=== PATIENT | male | born 1965 | race Caucasian/White ===

== ENCOUNTER 2018-06-07 16:25 | Inpatient (IN) | payer OTHER ==
[~2018-06-07] VITALS: Ht 167.6 cm; Wt 83.9 kg
[2018-06-07 17:07] LABS: ABSOLUTE BASOPHIL COUNT 0 /CUMM (0.0-0.2); ABSOLUTE EOSINOPHIL COUNT 0.1 /CUMM (0.0-0.7); ABSOLUTE GRANULOCYTE CT 6.7 /CUMM (1.4-6.5); ABSOLUTE LYMPH COUNT 1.2 /CUMM (1.2-3.4); ABSOLUTE MONOCYTE COUNT 0.7 /CUMM (0.10-0.60); BASOPHIL % 0.3 % (0.0-2.0); EOSINOPHIL % 0.6 % (0-5); GRANULOCYTE % 76.7 % (42.2-75.2); HEMATOCRIT 37.5 % (42-52); MEAN CORPUSCULAR HGB 25.4 PG (27.0-31.0); MEAN CORPUSCULAR HGB CONC 32.4 G/DL (33.0-37.0); MEAN CORPUSCULAR VOLUME 78.6 FL (80.0-94.0); MEAN PLATELET VOLUME 8.4 FL (7.4-10.4); PLATELET COUNT 275 /CUMM (130-400); RBC DISTRIBUTION WIDTH 18.5 % (11.5-14.5); RED BLOOD CELL CT 4.77 /CUMM (4.70-6.10); WHITE BLOOD CELL COUNT 8.8 /CUMM (4.8-10.8)
[2018-06-07 17:48] LABS: PT 11.3 SEC (9.4-12.5); PTT 26 SEC (25-37)
[2018-06-07 18:18] VITALS: BP 116/85
--- NOTE | 2018-06-07 18:23 | ED GI/GU/ABDOMINAL COMPLAINT ---
History of Present Illness General Chief Complaint: General Adult Stated Complaint: SIB BY DR CHISHOLM? Source: patient Exam Limitations: no limitations Vital Signs & Intake/Output Vital Signs & Intake/Output Vital Signs Date Time Temp Pulse Resp B/P B/P Pulse O2 O2 Flow FiO2 Mean Ox Delivery Rate 06/07 2038 98.5 87 20 150/90 06/07 1904 98.4 90 18 152/90 06/07 1904 98.4 90 18 152/90 99 Room Air 06/07 1818 98.5 108 18 116/85 06/07 1653 98.5 108 16 116/85 96 Room Air Allergies Coded Allergies: NO KNOWN ALLERGIES (04/01/11) Triage Note: PT STATES HE IS HAVING ABD PAIN STATES HE IS DRINKING TO MUCH. PT HAD BW DONE AT OFFICE AND WAS TOLD THAT HE HAS LOW NA, HIGH K LIPASE IS 793. PT STATES HE PT HAS NO BOWELS SOUNDS. LAST BM WAS YESTERDAY. PT IS ON METHADONE 50MG AND LISINIPRIL Triage Nurses Notes Reviewed? yes Onset: Abrupt Duration: day(s): Timing: recent history Quality/Severity: moderate, sharpness Radiation: epigastric HPI: 52-year-old male with history of alcohol abuse comes in with abdominal pain and nausea. He's been drinking heavily again for about 6 months. He was instructed by his PCP for abnormal labs. Denies any vomiting or blood in his stool. Denies any chest pain or shortness of breath. (Gerry Esparza) Past History Travel History Traveled to [place] past 21 day No Medical History Any Pertinent Medical History? see below for history Cardiovascular: hypertension Psychiatric: alcohol dependence Endocrine: PANCREATITIS Surgical History Surgical History: non-contributory Psychosocial History What is your primary language Estonian Tobacco Use: Never used ETOH Use: alcoholic Illicit Drug Use: METHADONE Family History Hx Contributory? No (Gerry Esparza) Review of Systems Review of Systems Constitutional: Reports: no symptoms. EENTM: Reports: no symptoms. Respiratory: Reports: no symptoms. Cardiovascular: Reports: no symptoms. GI: Reports: see HPI. Genitourinary: Reports: no symptoms. Musculoskeletal: Reports: no symptoms. Skin: Reports: no symptoms. Neurological/Psychological: Reports: no symptoms. Hematologic/Endocrine: Reports: no symptoms. Immunologic/Allergic: Reports: no symptoms. All Other Systems: Reviewed and Negative (Gerry Esparza) Physical Exam Physical Exam General Appearance: well developed/nourished, alert, awake, mild distress Head: atraumatic Eyes: Bilateral: normal appearance. Ears, Nose, Throat, Mouth: hearing grossly normal, moist mucous membrane Neck: normal inspection Respiratory: no respiratory distress Gastrointestinal: soft, tenderness Back: normal inspection Extremities: normal range of motion Core Measures ACS in differential dx? No Sepsis Present: No Sepsis Focused Exam Completed? No (Gerry Esparza) Progress Differential Diagnosis: AMI, biliary colic, gastritis, pancreatitis, PUD/GERD, perforated viscous, SBO Plan of Care: Orders Procedure Date/time Status Nothing by Mouth 06/08 B Active Patient Data 06/07 2016 Active Saline Lock 06/07 2006 Active Misc Message 06/07 2006 Active ED Holding Orders 06/07 2006 Active Admit to inpatient 06/07 2006 Active Vital Signs 06/07 2006 Active Code Status 06/07 2006 Active Intake & Output 06/07 1813 Active URINE LYTES, SPOT 06/07 1730 Complete CIWA 06/07 1656 Active URINE DRUG SCREEN FOR ER ONLY 06/07 1653 Complete TROPONIN LEVEL 06/07 1653 Complete PARTIAL THROMBOPLASTIN TIME 06/07 1653 Complete PROTHROMBIN TIME 06/07 1653 Complete LIPASE 06/07 1653 Complete ETHANOL 06/07 1653 Complete DIRECT BILIRUBIN 06/07 1653 Complete COMPREHENSIVE METABOLIC PANEL 06/07 1653 Complete CBC WITHOUT DIFFERENTIAL 06/07 1653 Complete AMYLASE 06/07 1653 Complete EKG 06/07 1653 Active Current Medications Sig/Randy Start time Last Medication Dose Stop Time Status Admin Lactated Ringer's 1,000 ML ONCE ONE 06/07 1830 AC 06/07 (Lactated Ringers) 06/07 2229 1826 Laboratory Tests 06/07/18 1730: Urine Opiates Screen < 100, Methadone Screen > 735 H, Barbiturate Screen < 60, Ur Phencyclidine Scrn 6.20, Amphetamines Screen < 100, U Benzodiazepines Scrn < 85, Urine Cocaine Screen < 50, Urine Cannabis Screen < 5.00, Ur Random Creatinine 112.0, Ur Random Sodium 57, Ur Random Potassium 13.5, Fraction Sodium Excret 0.4 06/07/18 1702: Anion Gap 14, Estimated GFR > 60, BUN/Creatinine Ratio 14.4, Glucose 182 H, Calcium 8.7, Total Bilirubin 0.6, Direct Bilirubin 0.4, AST 122 H, ALT 95 H, Alkaline Phosphatase 141 H, Troponin I < 0.01, Total Protein 6.9, Albumin 3.7, Globulin 3.2, Albumin/Globulin Ratio 1.2, Amylase 123 H, Lipase 915 H, PT 11.3 , INR 1.04, APTT 26, CBC w Diff NO MAN DIFF REQ, RBC 4.77, MCV 78.6 L, MCH 25.4 L, MCHC 32.4 L, RDW 18.5 H, MPV 8.4, Gran % 76.7 H, Lymphocytes % 14.0 L, Monocytes % 8.4, Eosinophils % 0.6, Basophils % 0.3, Absolute Granulocytes 6.7 H, Absolute Lymphocytes 1.2, Absolute Monocytes 0.7 H, Absolute Eosinophils 0.1 , Absolute Basophils 0, Serum Alcohol 138.0 06/07/18 1654: Ur Random Creatinine Cancelled, Ur Random Sodium Cancelled, Ur Random Potassium Cancelled, Fraction Sodium Excret Cancelled Initial ED EKG: normal sinus rhythm, rate (102), nonspecific ST T wave chg (Gerry Esparza) Departure Departure Disposition: HOME OR SELF CARE Condition: Stable Clinical Impression Primary Impression: Acute pancreatitis Referrals: Hakeem De La Rosa MD (PCP/Family) Departure Forms: Customer Survey General Discharge Information Admission Note Spoke With: Izabela Beltran MD Documentation of Exam: Documentation of any treatments & extenuating circumstances including Concerns Regarding Discharge (functional status, medication knowledge or non-compliance, living conditions, etc.) that warrant an admission rather than observation: IV fluids IV pain control. GI consultation. Medically unsafe for discharge. (Gerry Esparza) PA/VENEER CUTTER Co-Sign Statement Statement: ED Attending supervision documentation- [X] I saw and evaluated the patient. I have also reviewed all the pertinent lab results and diagnostic results. I agree with the findings and the plan of care as documented in the PA's/VENEER CUTTER's documentation. [] I have reviewed the ED Record and agree with the PA's/VENEER CUTTER's documentation. [] Additions or exceptions (if any) to the PAs/VENEER CUTTER's note and plan are summarized below: [ I saw the patient and I personally agree with the PAs evaluation and plan, sent for admission for acute pancreatitis.] (Thom BISWAS,Ernst Young) ED Attending Observation Initial Observation Note: I have seen and personally examined SHELLY VELA JR on 06/07/18 at 1853. I agree with the current emergency department documentation. The disposition (admission or discharge) is uncertain at this time, he needs a period of observation for the following reason(s): The ED Nurse caring for this patient has been personally informed as to what the patient is being observed for. (Yohannes CANDELARIA,Gerry)
[2018-06-07 19:04] VITALS: BP 152/90
[2018-06-07 20:38] VITALS: BP 150/90
--- NOTE | 2018-06-07 20:40 | History & Physical ---
Jacklyn Stanton 06/07/182038: General Information and HPI MD Statement: I have seen and personally examined MIRIANSHELLY JR and documented this H& P. The patient is a 52 year old M who presented with a patient stated chief complaint of [ETOH/Abd]. Source of Information: patient, family, old records Exam Limitations: no limitations History of Present Illness: 52-year-old gentleman with past medical history significant for alcohol use disorder 20 years ago with history of ICU admissions and alcohol withdrawal seizures and delirium tremens no history of intubation, polysubstance abuse on methadone 50 mg, hypertension brought in by family for alcohol withdrawal. Patient apparently started drinking last January after his father's . States he has been having 8 nebs of vodka and 2-4 isiah hard lemonade. He has been drinking more and more and has been more since the last week. His last drink was 2 PM on day of admission. He also complains of three-week duration of a bandlike 8 out of 10 constant pain which is nonradiating associated with one episode of relationship advisor vomiting which is clear and nonbloody. Denies fever, chills, loss of consciousness, falls, or seizure-like activity, decreased p.o. intake, history of gallstones in the past, bowel or bladder symptoms Allergies/Medications Allergies: Coded Allergies: NO KNOWN ALLERGIES (04/01/11) Home Med list Lisinopril/Hydrochlorothiazide (Lisinopril-Hctz 20-12.5 MG Tab) 20 MG-12.5 MG TABLET 1 TAB PO DAILY hypertension (Reported) Compliance With Home Meds: GOOD Past History Travel History Traveled to [place] past 21 day No Medical History Cardiovascular: hypertension Psychiatric: alcohol dependence Endocrine: PANCREATITIS Surgical History Surgical History: non-contributory Past Family/Social History Family History Relations & Conditions if any Relation not specified for: FH: diabetes mellitus Psychosocial History ETOH Use: alcoholic Illicit Drug Use: METHADONE Functional Ability ADLs Independent: dressing, eating, toileting, bathing. Ambulation: independent Employment History Employment Employed (has senior qa automation engineer business) Review of Systems Review of Systems Constitutional: Reports: see HPI. Exam & Diagnostic Data Last 24 Hrs of Vital Signs/I&O Vital Signs Date Time Temp Pulse Resp B/P B/P Pulse O2 O2 Flow FiO2 Mean Ox Delivery Rate 06/08 0101 174/102 06/07 2341 98.8 87 18 174/102 97 Room Air 06/07 2230 Room Air 06/07 2038 98.5 87 20 150/90 06/078 98.5 87 20 150/90 97 Room Air 06/07 1904 98.4 90 18 152/90 06/07 1904 98.4 90 18 152/90 99 Room Air 06/07 1818 98.5 108 18 116/85 06/07 1653 98.5 108 16 11685 96 Room Air Intake & Output 06/08 0800 06/08 0000 06/07 1600 Intake Total 1000 Output Total Balance 1000 Intake, IV 1000 Intake, Oral 0 Patient 185 lb Weight Weight Reported by Patient Measurement Method Physical Exam General Appearance Alert, Oriented X3, tremulous Skin No Significant Lesion HEENT Atraumatic, PERRLA, EOMI, Mucous Membr. moist/pink Lymphatic Cervical nl Cardiovascular Regular Rate, Normal S1, Normal S2 Abdomen Normal Bowel Sounds, Soft, No Tenderness Extremities No Edema Assessment/Plan Assessment: 52-year-old gentleman with past medical history significant for alcohol use disorder 20 years ago with history of ICU admissions and alcohol withdrawal seizures and delirium tremens no history of intubation, polysubstance abuse on methadone 50 mg, hypertension brought in by family for alcohol withdrawal. Problem list Alcohol withdrawal Alcoholic pancreatitis Plan: Admit to general medicine floor, vitals per protocol CIWA protocol, will start on Librium 50 every 6 Continue MVI, thiamine, folic acid We will keep n.p.o. for now, will continue Ringer lactate at 200 cc Advance diet as tolerated and based on abdominal pain. We will continue his home medications Patient is seen at the methadone clinic in [facility] at bedtime, his counselor Yulisa and the number is [phone] extension 435 DVT prophylaxis subcu local Lovenox Full code As Ranked By This Provider Problem List: 1. Acute pancreatitis 2. Alcohol withdrawal Core Measures/Misc (07/26) Acute Coronary Syndrome ACS Diagnosis: No Congestive Heart Failure Congestive Heart Failure Diagnosis No Cerebrovascular Accident CVA/TIA Diagnosis: No VTE (View Protocol) VTE Risk Factors Age>40 No Mechanical VTE Prophylaxis d/t N/A MechProphylax Ordered No VTE Pharm Prophylaxis d/t NA PharmProphylax ordered Sepsis (View protocol) Sepsis Present: No If YES complete Sepsis Event Note If YES complete Sepsis Event Note Ruby RAI,Izabela 06/08/18 2130: Core Measures/Misc (07/26) Sepsis (View protocol) If YES complete Sepsis Event Note If YES complete Sepsis Event Note Attending MD Review Statement Attending Statement Attending MD Statement: examined this patient, discuss w/resident/PA/BUTTER GRADER, agreed w/resident/PA/BUTTER GRADER
[2018-06-07] MEDS ORDERED: LISINOPRIL-HCT1 EACH PO (23:04)
[2018-06-07 23:41] VITALS: BP 174/102
[2018-06-08 06:58] VITALS: BP 124/84
[2018-06-08 08:09] VITALS: BP 150/90
--- NOTE | 2018-06-08 08:30 | PN- Housestaff ---
Otto Wheat 06/08/18 0829: Subjective Follow-up For: Alcohol Detox EtOH Withdrawal Subjective: He has no major complaints other than periumbilical abdominal pain, anxiety and stress that he has had before. Review of Systems Constitutional: Reports: see HPI. Denies: chills, diaphoresis, fever. Respiratory: Reports: no symptoms. Gastrointestinal: Reports: nausea (abdominal pain). Genitourinary: Reports: no symptoms. Neurological/Psychological: Reports: anxiety. Objective Last 24 Hrs of Vital Signs/I&O Vital Signs Date Time Temp Pulse Resp B/P B/P Pulse O2 O2 Flow FiO2 Mean Ox Delivery Rate 06/09 1200 98.1 88 18 134/90 98 Room Air 06/09 0817 80 18 130/90 97 Room Air 06/09 0803 90 152/96 06/09 0405 99.1 92 20 154/104 98 Room Air 06/09 0006 98.9 83 20 140/86 95 Room Air 06/08 2000 88 130/70 06/08 2000 98.7 88 16 130/70 06/08 1958 98.7 88 16 130/70 98 Room Air 06/08 1759 82 150/90 06/08 1600 98.4 80 16 160/104 06/08 1600 98.4 80 16 160/104 98 Room Air 06/08 1506 98.3 79 20 130/88 97 Room Air Intake & Output 06/09 1600 06/09 0800 08 0000 Intake Total 240 1360 Output Total 1400 1350 Balance -1160 10 Intake, IV 1060 Intake, Oral 240 300 Output, Urine 1400 1350 Physical Exam General Appearance: Alert, Oriented X3, Cooperative, No Acute Distress Skin: No Rashes Skin Temp/Moisture Exam: Warm/Dry Sepsis Skin Exam (color): Normal for Ethnicity HEENT: Atraumatic, PERRLA Neck: Supple, No JVD Cardiovascular: Regular Rate, Normal S1, Normal S2 Lungs: Clear to Auscultation, Normal Air Movement Abdomen: Normal Bowel Sounds (mild abominal tenderness) Neurological: Normal Speech, Strength at 5/5 X4 Ext, Normal Tone Extremities: No Clubbing (mild tremor) Orders CIWA Score (last 24 hrs): 4 Assessment/Plan Assessment: The patient is a 52-year-old male who is here for alcohol withdrawal and pancreatitis. His abdominal pain has decreased but still he has some abdominal pain, last night he had mild nausea this morning he has no nausea or vomiting. He feels lightheaded and dizzy when he gets out of the bed. His sodium level is 131, and is normal now. His transaminase AST 93 and ALT 81. For his acute pancreatitis he is n.p.o., and advanced to clear liquids, continuing IV hydration and monitoring. Regarding alcohol dependence/withdrawal, CIWA is followed, changed from Librium to Ativan, multivitamin, thiamine, folate per protocol, and social service consult is placed. The patient is hypokalemic with a sodium of 131 which is probably secondary to volume depletion, IV fluids was changed to normal saline and we will follow with sodium level next morning. [place]-Diuril is held. For his hypertension he is using lisinopril as he was at home, and will follow his blood pressure. He was using methadone at home will continue here as home. Problem List: 1. Alcohol withdrawal 2. Acute pancreatitis Pain Ratin Pain Location: periumbilical without radiation Pain Goal: Pain 4 or less Pain Plan: NPO, Hydaration, Teramadol, Tomorrow's Labs & Rationales: BEP - to follow Na LFT - elevated transaminases Shukri Saleem MD 06/08/18 1508: Attending MD Review Statement Attending Statement Attending MD Statement: examined this patient, discuss w/resident/PA/AIR SAW OPERATOR, agreed w/resident/PA/AIR SAW OPERATOR, discussed with family, reviewed EMR data (avail), discussed with nursing, discussed with case mgmt, amended to note Attending Assessment/Plan: S: The patient continues with some epigastric discomfort. Improved since yesterday. CIWA 0-4. O: VS: Vital Signs Date Time Temp Pulse Resp B/P B/P Pulse O2 O2 Flow FiO2 Mean Ox Delivery Rate 06/08 1506 98.3 79 20 130/88 97 Room Air 06/08 0855 91 150/90 06/08 0809 91 150/90 Intake & Output 06/08 1600 Intake Total 1235 Output Total 350 Balance 885 Intake, IV 875 Intake, Oral 360 Output, Urine 350 Current Medications Sig/Randy Start time Last Medication Dose Route Stop Time Status Admin Acetaminophen 650 MG Q6P PRN 06/08 0245 AC PO Acetaminophen 1,000 MG ONCE ONE 06/07 2315 DC 06/07 N/A 1 UNIT IV 06/07 2329 2315 Chlordiazepoxide HCl 50 MG Q8 06/07 2130 DC 06/08 PO 0518 Enoxaparin Sodium 40 MG DAILY 06/08 0900 AC 06/08 SC 0854 Folic Acid 1 MG DAILY 06/08 0900 AC 06/08 PO 0855 Hydrochlorothiazide 12.5 MG BID 06/08 0115 AC 06/08 PO 0855 Ketorolac 0 .STK-MED ONE 06/07 1717 DC Tromethamine .ROUTE Ketorolac 30 MG ONCE ONE 06/07 1700 DC 06/07 Tromethamine IV 06/07 1701 1724 Lactated Ringer's 1,000 ML DAILY 06/08 0900 CAN IV 06/09 1859 Lactated Ringer's 1,000 ML ONCE ONE 06/07 1830 DC 06/07 IV 06/07 2229 1826 Lisinopril 20 MG BID 06/08 0900 AC 06/08 PO 0855 Lisinopril 20 MG DAILY 06/07 2315 DC 06/08 PO 0101 Lorazepam 1 MG Q8 06/08 1400 AC 06/08 PO 1357 Lorazepam 0 .STK-MED ONE 06/07 2110 DC .ROUTE Lorazepam 0 Q1P PRN 06/07 2100 AC 06/07 IV 2113 Methadone HCl 50 MG DAILY 06/08 09 AC 06/08 PO 0854 Morphine Sulfate 0 .STK-MED ONE 06/07 2034 DC .ROUTE Morphine Sulfate 6 MG ONCE ONE 06/07 2030 DC IV 06/07 2031 Multivitamins 1 TAB DAILY 06/08 0900 AC 06/08 PO 0855 Omeprazole 40 MG DAILY AC 06/08 1041 AC 06/08 PO 1204 Potassium Chloride 40 MEQ Q1H 06/08 0900 DC 06/08 PO 06/08 1001 1005 Sodium Chloride 1,000 ML Q6H 06/08 0915 AC 06/08 IV 06/08 2057 0911 Sodium Chloride 1,000 ML BOLUS ONE 06/07 1700 DC 06/07 IV 06/07 1759 1724 Thiamine HCl 100 MG DAILY 06/08 0900 AC 06/08 PO 0855 Chest: clear Cor: RRR nl S1, S2 w/o murm Abd: BS+, soft, mild epigastric tenderness w/o guarding/rebound Ext: w/o edema Labs: Laboratory Tests 06/08/18 1341: Chloride Cancelled 06/08/18 1341: Estimated GFR > 60, BUN/Creatinine Ratio 13.8 06/08/18 0650: Anion Gap 12, Estimated GFR > 60, BUN/Creatinine Ratio 18.8, Total Bilirubin 1.0 , Direct Bilirubin 0.5 H, AST 93 H, ALT 81 H, Alkaline Phosphatase 90, Total Protein 6.1 L, Albumin 3.0 L 06/07/18 1730: Urine Opiates Screen < 100, Methadone Screen > 735 H, Barbiturate Screen < 60, Ur Phencyclidine Scrn 6.20, Amphetamines Screen < 100, U Benzodiazepines Scrn < 85, Urine Cocaine Screen < 50, Urine Cannabis Screen < 5.00, Ur Random Creatinine 112.0, Ur Random Sodium 57, Ur Random Potassium 13.5, Fraction Sodium Excret 0.4 06/07/18 1702: Anion Gap 14, Estimated GFR > 60, BUN/Creatinine Ratio 14.4, Glucose 182 H, Calcium 8.7, Total Bilirubin 0.6, Direct Bilirubin 0.4, AST 122 H, ALT 95 H, Alkaline Phosphatase 141 H, Troponin I < 0.01, Total Protein 6.9, Albumin 3.7, Globulin 3.2, Albumin/Globulin Ratio 1.2, Amylase 123 H, Lipase 915 H, PT 11.3 , INR 1.04, APTT 26, CBC w Diff NO MAN DIFF REQ, RBC 4.77, MCV 78.6 L, MCH 25.4 L, MCHC 32.4 L, RDW 18.5 H, MPV 8.4, Gran % 76.7 H, Lymphocytes % 14.0 L, Monocytes % 8.4, Eosinophils % 0.6, Basophils % 0.3, Absolute Granulocytes 6.7 H, Absolute Lymphocytes 1.2, Absolute Monocytes 0.7 H, Absolute Eosinophils 0.1 , Absolute Basophils 0, Serum Alcohol 138.0 06/07/18 1654: Ur Random Creatinine Cancelled, Ur Random Sodium Cancelled, Ur Random Potassium Cancelled, Fraction Sodium Excret Cancelled Impression/Plan: #Acute Pancreatitis- symptoms improved, however still some abdominal discomfort. Plan: OK to advance diet to clear liquids. Continue aggressive IV hydration and monitoring (NS). #EtOH Dependence/Withdrawal- CIWA being followed. Converted to Ativan from Librium. Plan: Continue Ativan and CIWA, MVI, thiamine, folate, etc. per protocol. Social service consult. #Hyponatremia/Hypokalemia- ? secondary to volume depletion? Plan: Agree with change IV to NS. Follow up labs. Hold Hydrodiuril. #Essential HTN- on Lisinopril at home. ?takes bid as per patient. Plan: Continue Lisinopril and monitor BP. #H/O Opioid Dependence- on chronic Methadone. Plan: Will continue Methadone and verify dose with clinic.
[2018-06-08 15:06] VITALS: BP 130/88
[2018-06-08 16:00] VITALS: BP 160/104
[2018-06-08 19:58] VITALS: BP 130/70
[2018-06-08 20:00] VITALS: BP 130/70
[2018-06-09] VITALS (8 sets, daily range): BP systolic 130–168; BP diastolic 84–104
--- NOTE | 2018-06-09 06:47 | PN- Housestaff ---
See Addendum Subjective Follow-up For: Alcohol Detox EtOH Withdrawal Review of Systems Constitutional: Denies: chills, diaphoresis, fever (reports mild tremor). Objective Last 24 Hrs of Vital Signs/I&O Vital Signs Date Time Temp Pulse Resp B/P B/P Pulse O2 O2 Flow FiO2 Mean Ox Delivery Rate 06/09 0817 80 18 130/90 97 Room Air 06/09 0803 90 152/96 06/09 0405 99.1 92 20 154/104 98 Room Air 06/09 0006 98.9 83 20 140/86 95 Room Air 06/08 2000 88 130/70 06/08 2000 98.7 88 16 130/70 06/08 1958 98.7 88 16 130/70 98 Room Air 06/08 1759 82 150/90 06/08 1600 98.4 80 16 160/104 06/08 1600 98.4 80 16 160/104 98 Room Air 06/08 1506 98.3 79 20 130/88 97 Room Air Intake & Output 06/09 1600 06/09 0800 06/09 0000 Intake Total 240 1360 Output Total 1400 1350 Balance -1160 10 Intake, IV 1060 Intake, Oral 240 300 Output, Urine 1400 1350 Physical Exam General Appearance: Alert, Oriented X3, Cooperative, No Acute Distress Abdomen: mild periumbilical and epigastric tenderness Extremities: Normal Pulses Orders CIWA Score (last 24 hrs): was under 5 Assessment/Plan Assessment: The patient is a 52-year-old male who is here for alcohol withdrawal and pancreatitis. His abdominal pain has decreased but still he has some abdominal pain, last night he had mild nausea this morning he has no nausea or vomiting. He feels lightheaded and dizzy when he gets out of the bed. His sodium level was 131 yesterday which is increased to 138 and is normal now. His transaminase levels are down, AST 66 and ALT 65. He was n.p.o. on admission, diet was changed to clear liquid the next morning, and today we will try to advance her diet to see if he can tolerate it. One of the social workers talk to him about management of his withdrawal once he is discharged from the hospital. Problem List: 1. Alcohol withdrawal 2. Acute pancreatitis Pain Ratin Pain Location: periumbilical pain and mild tenderness Pain Goal: Pain 4 or less Pain Plan: Diet, PRN med, Tomorrow's Labs & Rationales: BEP
--- NOTE | 2018-06-10 06:31 | PN- Housestaff ---
See Addendum Subjective Follow-up For: Alcohol withdrawal Alcohol detoxification Subjective: I saw him this morning at 7:30, he was complaining about the maldigestion that he had last night around 2 AM which improved after he took omeprazole. His diabetes liquids with toast, and he has tolerated it. He has noticed shaking in his lower extremities. No perspiration, abdominal pain has improved, anxiety is less than yesterday, he also complains about nightmares. Review of Systems Constitutional: Reports: see HPI. Cardiovascular: Reports: no symptoms, see HPI. Respiratory: Reports: no symptoms, see HPI. Objective Last 24 Hrs of Vital Signs/I&O Vital Signs Date Time Temp Pulse Resp B/P B/P Pulse O2 O2 Flow FiO2 Mean Ox Delivery Rate 06/10 0710 98.7 71 20 152/90 97 Room Air 06/09 2252 98.9 71 20 146/94 98 Room Air 06/09 2116 140/94 08/ 1600 84 142/100 08/ 1600 98.8 84 16 142/100 98 Room Air 06/09 1406 99.1 79 22 130/84 97 Room Air 06/09 1200 98.1 88 18 134/90 98 Room Air 06/09 0817 80 18 130/90 97 Room Air 06/09 0803 90 152/96 Intake & Output 06/10 0800 08/ 0000 0801 1600 Intake Total 1880 1400 2400 Output Total 450 900 Balance 9852 688 2957 Intake, IV 1400 1400 1400 Intake, Oral 480 1000 Number 0 Bowel Movements Output, Urine 450 900 Patient 185 lb Weight Physical Exam General Appearance: Alert, Oriented X3, Cooperative, No Acute Distress Skin: No Rashes Skin Temp/Moisture Exam: Warm/Dry Sepsis Skin Exam (color): Normal for Ethnicity HEENT: Atraumatic, PERRLA Neck: Supple, No JVD Cardiovascular: Regular Rate, Normal S1, Normal S2 Lungs: Clear to Auscultation, Normal Air Movement Abdomen: minimal periumbilical tenderness Neurological: Normal Speech Assessment/Plan Assessment: The patient is a 52-year-old male who is here for alcohol withdrawal and pancreatitis. His condition has improved overall and hopefully he can be discharged tomorrow. We will plan for his discharge, Will make an appointment with [facility] so that he can go there for Methadone. He will try to ambulate today. Acute Pancreatitis: His symptoms (Abdominal pain and nausea) improving, he has minimal abdominal pain left (2/10). Plan: Diet will be advanced to regular today, he was OK with fluid diet with toast. IV hydration will be discontinued today. Alcohol Dependence/Withdrawal: We will follow CIWA protocol. Ativan 1mg po Q12 and will taper it. Plan: we will continue Ativan and CIWA protocol. We will follow his condition. Hyponatremia/Hypokalemia: Potassium and Sodium are back to normal and stable. Plan: We will follow up labs to check BEP. Continue to hold Hydrodiuril. Essential HTN: He is currently on Amilodipine and Lisinopril for HTN, still elevated Plan: We will monitor blood pressure to see if it is needed to increase the dose. Hx of Opioid Dependence: He is on chronic Methadone through [facility]. Plan: Will continue Methadone. We will make an appointment for him with [facility] so he can get medication through [facility], once he is discharged from here. Problem List: 1. Alcohol withdrawal 2. Acute pancreatitis Pain Ratin Pain Location: periumbilical Pain Goal: decrease pain Pain Plan: He is tolerating fluids, will advance diet. He has less pain, and will decrease as his pancreatitis resolve over time. Tomorrow's Labs & Rationales: BEP to follow [facility]
[2018-06-10 07:10] VITALS: BP 152/90
[2018-06-10 08:00] VITALS: BP 142/78
[2018-06-10 15:17] VITALS: BP 148/82
--- NOTE | 2018-06-10 18:56 | Discharge Summary ---
See Addendum Visit Information Visit Dates Admission Date: 06/07/18 Discharge Date: 06/11/2018 Hospital Course Course Attending Physician: Shukri Saleem MD Primary Care Physician: Hakeem De La Rosa MD Hospital Course: Mr. Emanuel is a 52-year-old gentleman with past medical history of alcohol use disorder (20 years ago which ended to ICU admission due to the seizures and delirium tremens) who is here for alcohol detoxification and withdrawal. During his hospital course he received p.o. Ativan, methadone 50 mg the same as home dose, and lisinopril with amlodipine to control blood pressure. He was n.p.o. at first then his diet was advanced and he tolerated it and his abdominal pain improved. The patient is going to his methadone clinic today to receive his medication. Acute Pancreatitis: On admission he had a lipase of 915 and lipase 123, during hospital hospital stay his abdominal pain improved. Transaminases were also increased upon admission, which improved. Alcohol Dependence/Withdrawal: CIWA protocol was followed. Essential HTN: Patient presented with high blood pressure, he was on lisinopril/ hydrochlorothiazide, which was stopped due to the hyponatremia, lisiopril and amilodipine were started for him and should be continued outpatient. Hx of Opioid Dependence: He is on chronic Methadone 50 mg daily through [facility]. Allergies: Coded Allergies: NO KNOWN ALLERGIES (04/01/11) Disposition Summary Disposition Principal Diagnosis: Alcohol withdrawal/dependence Alcohol induced pancreatitis Additional Diagnosis: Hypertension Methadone use Discharge Disposition: home or self care Discharge Instructions General Discharge Information Code Status: Full Code Patient's Diet: He tolerated a regular diet Patient's Activity: As tolerated Follow-Up Instructions/Appts: Follow-up with methadone clinic, psychiatry, PCP Check potassium Level in one week Medications at Discharge Discharge Medications: Stop taking the following medications: Lisinopril/Hydrochlorothiazide (Lisinopril-Hctz 20-12.5 MG Tab) 20 MG-12.5 MG TABLET ORAL DAILY Qty = 60 Continue taking these medications: Methadone Hydrochloride (Methadone HCl) 10 MG TABLET 50 Milligram ORAL DAILY Comments: Last Taken: 06/11/18 Time: 1030AM Start taking the following new medications: Lisinopril (Lisinopril) 20 MG TABLET 1 Tablet ORAL TWICE DAILY Qty = 60 No Refills Instructions: . Comments: Last Taken: 06/11/18 Time: 1030AM Omeprazole (Omeprazole) 40 MG CAPSULE.DR 1 Capsule ORAL DAILY Qty = 30 No Refills Comments: Last Taken: 06/11/18 Time: 0600AM Folic Acid (Folic Acid) 1 MG TABLET 1 Milligram ORAL DAILY Qty = 30 No Refills Comments: Last Taken: 06/11/18 Time: 1030AM Thiamine HCl (Vitamin B-1) 100 MG TABLET 100 Milligram ORAL DAILY Qty = 30 No Refills Comments: Last Taken: 06/11/18 Time: 1030AM Multivitamin (One Daily Multivitamin) 1 EACH TABLET 1 Tablet ORAL DAILY Qty = 30 No Refills Comments: Last Taken: 06/11/18 Time: 1030AM Amlodipine Besylate (Amlodipine Besylate) 10 MG TABLET 1 Tablet ORAL DAILY Qty = 30 No Refills Comments: Last Taken: 06/11/18 Time: 1030AM Copies To: Rj RAI,Hakeem Diaz Attending Review Statement Documenting Attending: Shukri Saleem MD Other Findings: The patient was seen and discussed with house staff. Agree with above summary of care and plan for follow-up. His BP meds were adjusted (HCTZ eliminated and Amlodipine initiated). He will need follow-up for this with his PCP. pharmacy services representative is arranging individual alcohol counseling. He will go to his Methadone clinic today to obtain his doses and will be followed there.
[2018-06-10 20:00] VITALS: BP 152/100
--- NOTE | 2018-06-10 21:38 | Patient Discharge Instructions ---
Discharge Instructions General Discharge Information You were seen/treated for: Alcohol abuse Pancreatitis High Blood pressure Special Instructions: Follow up with your pcp within 1 week of discharge Note the medications that have been changed/added: lisinopril and amlodipine Acute Coronary Syndrome Inclusion Criteria At DC or during hospital stay patient has or had the following: ACS DIAGNOSIS No Discharge Core Measures Meds if any: Prescribed or Continued at Discharge Meds if any: NOT Prescribed or Continued at Discharge Congestive Heart Failure Inclusion Criteria At DC or during hospital stay patient has or had the following: CHF DIAGNOSIS No Discharge Core Measures Meds if any: Prescribed or Continued at Discharge Meds if any: NOT Prescribed or Continued at Discharge Cerebrovascular accident Inclusion Criteria At DC or during hospital stay patient has or had the following: CVA/TIA Diagnosis No Discharge Core Measures Meds if any: Prescribed or Continued at Discharge Meds if any: NOT Prescribed or Continued at Discharge Venous thromboembolism Inclusion Criteria VTE Diagnosis No VTE Type NONE VTE Confirmed by (Test) NONE Discharge Core Measures - Per Current guidelines, there needs to be overlap - treatment for the first 5 days of Warfarin therapy. - If discharged on Warfarin prior to 5 days of - overlap therapy, the patient will need to be - assessed for post discharge needs including - *Post discharge parental anticoagulation - *Warfarin and/or parental anticoagulation education - *Follow up date to check INR post discharge At least 5 days overlap therapy as Inpatient No Meds if any: Prescribed or Continued at Discharge Note: Overlap Therapy is Warfarin and Anticoagulant Meds if any: NOT Prescribed or Continued at Discharge
[2018-06-11 00:35] VITALS: BP 130/100
--- NOTE | 2018-06-11 06:39 | PN- Housestaff ---
See Addendum Subjective Follow-up For: Alcohol withdrawal Alcohol detoxification Abdominal pain Subjective: Patient this morning, he was feeling better overall. He reports lower level of anxiety, less tremor, abdominal pain has improved, he reports no perspiration. He reports that he had a normal bowel movement. He has tried to walk yesterday and he is able to walk now although he had some issues with the stability of the first when he tried to walk. Review of Systems Constitutional: Reports: see HPI. Objective Last 24 Hrs of Vital Signs/I&O Vital Signs Date Time Temp Pulse Resp B/P B/P Pulse O2 O2 Flow FiO2 Mean Ox Delivery Rate 06/11 0035 98.8 69 20 130/100 96 06/10 2057 68 152/100 06/10 2000 99.0 68 18 152/100 97 Room Air 06/10 1517 98.6 77 18 148/82 96 Room Air 06/10 0849 66 148/78 Intake & Output 06/11 1600 06/11 0800 06/11 0000 Intake Total 250 210 Output Total Balance 250 210 Intake, IV 10 10 Intake, Oral 240 200 Number Bowel Movements Output, Urine Physical Exam General Appearance: Alert, Oriented X3, Cooperative, No Acute Distress Skin: No Rashes Skin Temp/Moisture Exam: Warm/Dry Sepsis Skin Exam (color): Normal for Ethnicity HEENT: Atraumatic Abdomen: Normal Bowel Sounds, Soft, Minimal periumbilical tenderness improved comparing to yesterday Assessment/Plan Assessment: Assessment: The patient is a 52-year-old male who is here for alcohol withdrawal and pancreatitis. His condition has improved overall and hopefully he can be discharged today. Acute Pancreatitis: His symptoms (Abdominal pain and nausea) improving, he has minimal abdominal pain left (11/18). Plan: he was OK with regular diet. Alcohol Dependence/Withdrawal: We will follow CIWA protocol. Plan: We will follow his condition. Ativan taperd. Hyponatremia/Hypokalemia: Potassium and Sodium are normal. Plan: We will follow up labs to check BEP. He should check potassium as outpatient. Continue to hold Hydrodiuril. Essential HTN: He is currently on Amilodipine and Lisinopril for HTN, still elevated. Plan: We will monitor blood pressure to see if it is needed to increase the dose. Hx of Opioid Dependence: He is on chronic Methadone through his clinic. Plan: Will continue Methadone. We will make an appointment for him with his clinic so he can get medication through his clinic, once he is discharged from here. Problem List: 1. Acute pancreatitis 2. Alcohol withdrawal Pain Ratin Pain Location: Abdomen Pain Goal: DECREASE Pain Plan: Diet and time Tomorrow's Labs & Rationales: na
[2018-06-11] MEDS ORDERED: LISINOPRIL20 M1 PO ×2 (10:56→12:16)
[2018-06-11] MEDS ORDERED: METHADONE HCL10 M1 PO (11:35)
[2018-06-11] MEDS ORDERED: ONE DAILY MULT1 EAC2 PO (11:42)
[2018-06-11] MEDS ORDERED: FOLIC ACID1 M1 PO (11:42)
[2018-06-11] MEDS ORDERED: VITAMIN B-1100 MG PO (11:42)
[2018-06-11] MEDS ORDERED: OMEPRAZOLE40 M1 PO (11:42)
[2018-06-11] MEDS ORDERED: AMLODIPINE BESY10 M1 PO (11:52)
[2018-06-11 12:15] VITALS: BP 148/88
== END 2018-06-11 12:22 | DRG 896 ==
LOC: ERH 16:25 → ERHI 20:06 → 2NB 20:06 → ENRESERV 20:57 → 2NB 21:29 → ERHI 21:47 → ENTRNSPT 21:49 → EDTRNSPT 22:15 → EDTRNSPTSTS 22:15 → CMPTRNSPT 22:26 → 2NB 22:46 → ENPENDDIS 06-11 12:17 → 2NB 06-11 12:22
PROVIDERS: Physician Assistant
DX: F10.239 Alcohol dependence with withdrawal, unspecified (principal); K85.20 Alcohol induced acute pancreatitis without necrosis or infection; E87.1 Hypo-osmolality and hyponatremia; F11.20 Opioid dependence, uncomplicated; F41.9 Anxiety disorder, unspecified; E87.6 Hypokalemia; I10 Essential (primary) hypertension
CPT/HCPCS: 2NBSP; 84133; 84300; 36592; 80307; 82436; 82570; 93005; 93010; 96361; 96374; G0480; J0131; J1650; J1885; J3490; J7120